=== PATIENT | female | born 1980 | race Caucasian/White ===

== ENCOUNTER 2021-04-29 13:48 | Emergency (ER) | payer BC ==
[~2021-04-29] VITALS: Ht 165.1 cm; Wt 63.5 kg
== END 2021-04-29 18:44 | disposition home or self-care (01) ==
LOC: ER 13:48
DX: O26.892 Other specified pregnancy related conditions, second trimester (principal); Z3A.18 18 weeks gestation of pregnancy; Z37.0 Single live birth; K52.89 Other specified noninfective gastroenteritis and colitis; E86.0 Dehydration